=== PATIENT | female | born 1960 | race African-American/Black ===

== ENCOUNTER 2019-01-18 17:54 | Emergency (ER) | payer OTHER ==
[~2019-01-18] VITALS: Ht 165.1 cm; Wt 74.8 kg
[2019-01-18 17:58] VITALS: Ht 165.1 cm; Wt 74.8 kg
[2019-01-18 19:39] VITALS: BP 127/86
== END 2019-01-18 19:39 | disposition home or self-care (01) ==
LOC: ED 17:54
DX: T15.02XA Foreign body in cornea, left eye, initial encounter (principal); F17.210 Nicotine dependence, cigarettes, uncomplicated; R03.0 Elevated blood-pressure reading, without diagnosis of hypertension; F31.9 Bipolar disorder, unspecified; W45.8XXA Other foreign body or object entering through skin, initial encounter; Y93.89 Activity, other specified; Y92.89 Other specified places as the place of occurrence of the external cause; Y99.8 Other external cause status